=== PATIENT | male | born 1955 | race Native Hawaiian/Other Pacific Islander ===

== ENCOUNTER 2019-02-13 16:17 | Emergency (ER) | payer OTHER ==
[~2019-02-13] VITALS: Ht 182.9 cm; Wt 82.6 kg
[2019-02-13 16:23] VITALS: BP 124/84; TEMP 99.5
[2019-02-13 16:35] LABS: PLATELET COUNT 310 K/uL (142-355)
[2019-02-13 16:43] LABS: POTASSIUM 3.5 mmol/L (3.6-5.2)
[2019-02-14] MEDS ORDERED: AMLODIPINE PO (02:19)
[2019-02-14] MEDS ORDERED: POLYETH GLYC3350 N1 PO (02:21)
[2019-02-14] MEDS ORDERED: VITAMIN B1100 M1 PO (02:23)
[2019-02-14] MEDS ORDERED: GEODON PO (02:27)
[2019-02-14] MEDS ORDERED: LAXATIVE5 MG PO (02:29)
[2019-02-14] MEDS ORDERED: PAROXETINE PO (02:34)
[2019-02-14] MEDS ORDERED: HALDOL DEC IM (02:38)
[2019-02-14] MEDS ORDERED: HALO5INJ3 IM (02:41)
[2019-02-14] MEDS ORDERED: XENAZINE12.5 MG PO (02:42)
== END 2019-02-13 17:15 | disposition other institution (70) ==
LOC: ED 16:17
PROVIDERS: Student in an Organized Health Care Education/Training Program
DX: F32.89 Other specified depressive episodes (principal); F91.8 Other conduct disorders; R00.1 Bradycardia, unspecified; Z04.6 Encounter for general psychiatric examination, requested by authority
CPT/HCPCS: 80053; 85027; 93005; 99285